=== PATIENT | male | born 1980 | race Caucasian/White ===

== ENCOUNTER 2017-09-04 13:17 | Day surgery (SDC) | payer BC, OTHER ==
[2017-09-04] MEDS ORDERED: Tetan/Diph/Pertus SYR(Tdap)* 0.5 ML SYR(BOOSTRIX) use SYR IM ONE (13:54)
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
[2017-09-04] MEDS ORDERED: NS 0.9% 1000 ML* 1,000 ML IV SCH (15:30)
[2017-09-04 16:19] LABS: Hematocrit 43 % (42-52); Hemoglobin 14.7 g/dl (14.0-18.0); Mean Corpuscular HGB Conc 34 g/dl (31-36); Mean Corpuscular Hemoglobin 30 pg (27-31); Mean Corpuscular Volume 86 fL (80-94); Mean Platelet Volume 7.3 um3 (7.4-10.4); Platelet Count 259 10^3/ul (150-450); Red Blood Count 4.98 10^6/ul (4.0-5.4); Red Cell Distribution Width 13 % (10.5-15); White Blood Count 7.3 10^3/ul (3.5-10.8)
[2017-09-04] MEDS ORDERED: ceFAZolin 1 GM VIAL(*) 1 GM in NS 0.9% 50 ML* 50 ML IVPB ONE (16:34)
[2017-09-04] MEDS ORDERED: fentaNYL* 50 MCG/ML 2 ML VIAL (100 MCG VIAL) ONE (18:44)
[2017-09-04] MEDS ORDERED: Midazolam* 1 MG/ML 2 ML VIAL (2 MG) ONE ×2 (18:44→20:10)
[2017-09-04] MEDS ORDERED: Bupivacaine 0.5% PF 10 ML VIAL INJ ONE (18:47)
[2017-09-04] MEDS ORDERED: Lidocaine 2% PF* 10 ML AMP ONE (18:47)
[2017-09-04] MEDS ORDERED: ceFAZolin 2 GM PREMIX (*) 2 GM/50 ML BAG IVPB ONE (18:53)
[2017-09-04] MEDS ORDERED: Metoclopramide IV* 5 MG/ML 2 ML VIAL ONE (18:58)
[2017-09-04] MEDS ORDERED: Sodium Citrate/Citric Acid* 15 ML UDC ONE (18:59)
[2017-09-04] MEDS ORDERED: Famotidine IV* 10 MG/ML 2 ML (20 mg) ONE (18:59)
[2017-09-04] MEDS ORDERED: Lidocaine 1% INJ* 10 MG/ML 30 ML SDV ONE (19:31)
[2017-09-04] MEDS ORDERED: Bupivacaine 0.25% SDV* 30 ML ONE (20:32)
[2017-09-04] MEDS ORDERED: oxyCODONE/Acetamin 5/325 MG* TAB PO PRN (20:35)
[2017-09-04] MEDS ORDERED: Acetaminophen TAB* 325 MG PO PRN (20:35)
[2017-09-04] MEDS ORDERED: Ondansetron ODT TAB* 4 MG PO PRN (20:35)
[2017-09-04] MEDS ORDERED: diPHENhydraMINE IV* 50 MG/ML 1 ml VIAL (BENADRYL) IV PRN (20:35)
[2017-09-04] MEDS ORDERED: HYDROmorphone INJ* 1 MG/ML CARPUJECT SYRINGE IV PRN (20:35)
[2017-09-04] MEDS ORDERED: fentaNYL* 50 MCG/ML 2 ML VIAL (100 MCG VIAL) IV PRN (20:35)
[2017-09-04] MEDS ORDERED: Naloxone* 0.4 MG/ML 1 ML VIAL IV PRN (20:35)
[2017-09-04 21:17] VITALS: BP 126/78
--- NOTE | 2017-09-05 14:18 | RAD ---
INDICATION: Removal of foreign body COMPARISONS: September 04, 2017 TECHNIQUE: Fluoroscopy was provided for a surgical procedure. Total fluoroscopy time is: 6.8 seconds FINDINGS: Spot images demonstrate interval removal of the radiopaque foreign body. IMPRESSION: FLUOROSCOPY WAS PROVIDED FOR A SURGICAL PROCEDURE CPT II Codes: G9500
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
== END 2017-09-04 21:34 | disposition home or self-care (01) ==
LOC: ED 13:17 → OR 18:50
PROVIDERS: ATTEND Internal Medicine
DX: S51.042A Puncture wound with foreign body of left elbow, initial encounter (principal); G89.18 Other acute postprocedural pain; E03.9 Hypothyroidism, unspecified; Y35.091A Legal intervention involving other firearm discharge, law enforcement official injured, initial encounter; Y93.89 Activity, other specified; Y92.9 Unspecified place or not applicable; Y99.0 Civilian activity done for income or pay
CPT/HCPCS: 36415; 76000; 80048; 85027; 90715; 99285; A9270-GY; J0690; J2001; J2250; J2765; J3010